=== PATIENT | female | born 1940 | race Two or more races ===

== ENCOUNTER 2017-02-11 06:37 | Day surgery (SDC) | payer OTHER ==
[~2017-02-11 06:37] MED LIST: BALANCED SALT IRRIG SOLN COMB1 500 ML, GENTAMICIN SULFATE INJ 4 MG, EPINEPHRINE-PF 1:10... IO ONE
[2017-02-11] MEDS ORDERED: TROPICAMIDE 1% OPHT DROP 3 ML BOTTLE ONE (07:02)
[2017-02-11] MEDS ORDERED: CIPROFLOXACIN 0.3% OPHT DROP 2.5 ML BOTTLE ONE (07:02)
[2017-02-11] MEDS ORDERED: CYCLOPENTOLATE 1% OPHT DROP 2 ML BOTTLE ONE (07:02)
[2017-02-11] MEDS ORDERED: PHENYLEPHRINE 2.5% OPHT DROP 2 ML BOTTLE ONE (07:03)
[2017-02-11] MEDS ORDERED: KETOROLAC 0.5% OPHT DROP 3 ML BOTTLE ONE (07:03)
[2017-02-11] MEDS ORDERED: MOXIFLOXACIN HCL 3 ML OPHT DROPS ONE (07:37)
[2017-02-11] MEDS ORDERED: LIDOCAINE-MPF 2% 5 ML VIAL ONE (07:38)
[2017-02-11] MEDS ORDERED: TIMOLOL MALEATE 0.5% OPHT DROP 5 ML BOTTLE ONE (07:38)
[2017-02-11] MEDS ORDERED: TETRACAINE HCL 0.5% OPHT DROP 2 ML BOTTLE ONE (07:38)
[2017-02-11] MEDS ORDERED: LIDOCAINE HCL-MPF 1% 5 ML VIAL ONE (07:38)
[2017-02-11] MEDS ORDERED: NEO/POLYMYX B/DEXAME OPHT OINT 3.5 GM TUBE ONE (07:38)
[2017-02-11] MEDS ORDERED: BALANCED SALT IRRIG SOLN COMB2 15 ML IRRIG.SOLN ONE (07:39)
[2017-02-11] MEDS ORDERED: BUPIVACAINE PF 0.5% 30 ML VIAL ONE (07:39)
[2017-02-11] MEDS ORDERED: ACETYLCHOLINE CHLORIDE 1% OPHT 1 EA KIT ONE (07:39)
[2017-02-11] MEDS ORDERED: EPINEPHRINE 1 MG/1 ML AMP ONE (07:39)
[2017-02-11] MEDS ORDERED: HYALURONATE SODIUM 8.5 MG/0.85 ML DISP.SYRIN ONE (07:40)
[2017-02-11] MEDS ORDERED: HYALURONIDASE,OVINE 200 UNITS/ML VIAL ONE (07:40)
[2017-02-11] MEDS ORDERED: HYALURONATE SODIUM 12.8 MG/0.8 ML DISP.SYRIN ONE (07:40)
[2017-02-11] MEDS ORDERED: BALANCED SALT IRRIG SOLN COMB1 500 ML, GENTAMICIN SULFATE INJ 4 MG, EPINEPHRINE-PF 1:10... IO ONE ×3 (07:45)
[2017-02-11] MEDS ORDERED: FENTANYL CITRATE 100 MCG/2 ML AMPUL ONE (08:25)
== END 2017-02-11 08:45 | disposition home or self-care (01) ==
LOC: DS 06:37
PROVIDERS: ATTEND Ophthalmology
DX: H26.9 Unspecified cataract (principal); Z53.9 Procedure and treatment not carried out, unspecified reason
CPT/HCPCS: 36415; 71010; 84132; A4663; J0171; J1580; J3010; J3471; J3490; J7120; J7321

== ENCOUNTER 2017-04-01 06:37 | Day surgery (SDC) | payer OTHER ==
[2017-04-01] MEDS ORDERED: BALANCED SALT IRRIG SOLN COMB1 500 ML, GENTAMICIN SULFATE INJ 4 MG, EPINEPHRINE-PF 1:10... IO ONE ×3 (07:00)
[2017-04-01] MEDS ORDERED: CIPROFLOXACIN 0.3% OPHT DROP 2.5 ML BOTTLE ONE (07:05)
[2017-04-01] MEDS ORDERED: FLURBIPROFEN 0.03% OPHT DROP 2.5 ML BOTTLE ONE (07:05)
[2017-04-01] MEDS ORDERED: TROPICAMIDE 1% OPHT DROP 3 ML BOTTLE ONE (07:05)
[2017-04-01] MEDS ORDERED: CYCLOPENTOLATE 1% OPHT DROP 2 ML BOTTLE ONE (07:05)
[2017-04-01] MEDS ORDERED: PHENYLEPHRINE 2.5% OPHT DROP 2 ML BOTTLE ONE (07:06)
[2017-04-01] MEDS ORDERED: TETRACAINE HCL 0.5% OPHT DROP 2 ML BOTTLE ONE (08:03)
[2017-04-01] MEDS ORDERED: LIDOCAINE HCL-MPF 1% 5 ML VIAL ONE (08:03)
[2017-04-01] MEDS ORDERED: LIDOCAINE-MPF 2% 5 ML VIAL ONE (08:03)
[2017-04-01] MEDS ORDERED: NEO/POLYMYX B/DEXAME OPHT OINT 3.5 GM TUBE ONE (08:03)
[2017-04-01] MEDS ORDERED: MOXIFLOXACIN HCL 3 ML OPHT DROPS ONE (08:03)
[2017-04-01] MEDS ORDERED: BALANCED SALT IRRIG SOLN COMB2 15 ML IRRIG.SOLN ONE (08:03)
[2017-04-01] MEDS ORDERED: TIMOLOL MALEATE 0.5% OPHT DROP 5 ML BOTTLE ONE (08:03)
[2017-04-01] MEDS ORDERED: EPINEPHRINE 1 MG/1 ML AMP ONE (08:03)
[2017-04-01] MEDS ORDERED: HYALURONIDASE,OVINE 200 UNITS/ML VIAL ONE (08:04)
[2017-04-01] MEDS ORDERED: HYALURONATE SODIUM 8.5 MG/0.85 ML DISP.SYRIN ONE (08:04)
[2017-04-01] MEDS ORDERED: ACETYLCHOLINE CHLORIDE 1% OPHT 1 EA KIT ONE (08:04)
[2017-04-01] MEDS ORDERED: BUPIVACAINE PF 0.5% 30 ML VIAL ONE (08:04)
[2017-04-01] MEDS ORDERED: BALANCED SALT IRRIG SOLN COMB1 0 ML ONE (08:05)
[2017-04-01] MEDS ORDERED: HYALURONATE SODIUM 12.8 MG/0.8 ML DISP.SYRIN ONE (08:05)
[2017-04-01] MEDS ORDERED: TRYPAN BLUE 0.5 ML DISP.SYRIN ONE (08:12)
[2017-04-01] MEDS ORDERED: FENTANYL CITRATE 100 MCG/2 ML AMPUL ONE (08:36)
== END 2017-04-01 10:15 | disposition home or self-care (01) ==
LOC: DS 06:37
PROVIDERS: ATTEND Ophthalmology
DX: H26.8 Other specified cataract (principal); Z88.8 Allergy status to other drugs, medicaments and biological substances; Z79.899 Other long term (current) drug therapy; E03.9 Hypothyroidism, unspecified; M54.5 Low back pain; E78.1 Pure hyperglyceridemia; I10 Essential (primary) hypertension; K21.9 Gastro-esophageal reflux disease without esophagitis; M53.86 Other specified dorsopathies, lumbar region
CPT/HCPCS: A4663; J0171; J1580; J3010; J3471; J3490; J7120; J7321; Q9968; V2632